=== PATIENT | male | born 1970 | race Caucasian/White ===

== ENCOUNTER 2025-02-27 10:25 | Inpatient (IN) | payer MEDICAID ==
[~2025-02-27] VITALS: Ht 177.8 cm; Wt 88.9 kg
[2025-02-27 11:05] LABS: PLATELET COUNT (AUTO) 247 K/uL (150-450); RED BLOOD CELL COUNT(AUTO) 4.71 MIL/uL (4.5-6.0); RED CELL DISTRIBUTION WIDTH 13.4 % (11.5-15.0); WHITE BLOOD COUNT (AUTO) 7.6 K/uL (4.3-11.0)
[2025-02-27] MEDS: IV NS 0.9% 1,000 ML BAG IV ONE (11:10)
[2025-02-27] MEDS: ONDANSETRON HCL/PF 4 MG/2 ML VIAL IVP ONE (11:11)
[2025-02-27] MEDS ORDERED: ONDANSETRON HCL/PF 4 MG/2 ML VIAL ONE (11:11)
[2025-02-27] MEDS ORDERED: MORPHINE SULFATE INJ 4 MG/ML DISP.SYRIN ONE (11:11)
[2025-02-27] MEDS: MORPHINE SULFATE INJ 2 MG/ML DISP.SYRIN IV ONE (11:12)
[2025-02-27 11:15] LABS: CALCIUM, SERUM 8.9 mg/dL (8.5-10.1); CREATININE 0.7 mg/dL (0.6-1.3); SODIUM SERUM 137.0 mmol/L (136-145); UREA NITROGEN, BLOOD 7.0 mg/dL (7-18)
[2025-02-27 11:23] LABS: ASPARTATE AMINOTRANSFERASE 32.0 U/L (15-37); TOTAL PROTEIN, SERUM 7.5 g/dL (6.4-8.2)
[2025-02-27 12:50] LABS: APPEARANCE,URINE CLEAR (CLEAR); BLOOD, URINE NEGATIVE Ery/uL (NEGATIVE); LEUKOCYTE ESTERASE ,URINE NEGATIVE (NEGATIVE); NITRITE, URINE NEGATIVE (NEGATIVE); UGLUCOSE NEGATIVE (NEGATIVE)
[2025-02-27 13:05] LABS: ADD URINE CULTURE NO; SQUAMOUS EPITHELIAL CELL,UR 0-2 /HPF (None Seen)
[2025-02-27] MEDS ORDERED: ONDANSETRON HCL/PF 4 MG/2 ML VIAL IVP PRN (13:30)
[2025-02-27] MEDS: ENOXAPARIN SODIUM 40 MG/0.4 ML DISP.SYRIN SQ SCH (15:19)
[2025-02-27] MEDS: MORPHINE SULFATE INJ 2 MG/ML DISP.SYRIN IV PRN (15:22)
[2025-02-27] MEDS: IV NS 0.9% 1,000 ML IV PRN (15:40)
[2025-02-27 15:53] VITALS: BP 149/97; TEMP 98; O2SAT 99
[2025-02-27 16:08] LABS: IRON, SERUM 31.0 ug/dl (50-175)
[2025-02-27 20:00] VITALS: BP 157/99; TEMP 98.2; O2SAT 99
[2025-02-27] MEDS: ZOLPIDEM TARTRATE 5 MG TABLET PO PRN (23:01)
[2025-02-28 07:33] LABS: PLATELET COUNT (AUTO) 242 K/uL (150-450); RED BLOOD CELL COUNT(AUTO) 4.65 MIL/uL (4.5-6.0); RED CELL DISTRIBUTION WIDTH 13.3 % (11.5-15.0); WHITE BLOOD COUNT (AUTO) 6.3 K/uL (4.3-11.0)
[2025-02-28 07:50] LABS: CALCIUM, SERUM 8.7 mg/dL (8.5-10.1); CREATININE 0.7 mg/dL (0.6-1.3); PHOSPHORUS 3.4 mg/dL (2.5-4.9); SODIUM SERUM 138.0 mmol/L (136-145); UREA NITROGEN, BLOOD 6.0 mg/dL (7-18)
[2025-02-28 08:00] VITALS: BP 141/97; TEMP 99; O2SAT 100
[2025-02-28 08:10] LABS: INR 1.07 (0.91-1.10)
[2025-02-28] MEDS ORDERED: IV NS 0.9% 250 ML IV ONE (11:16)
[2025-02-28] MEDS ORDERED: IOHEXOL-300 100 ML VIAL IV ONE (11:16)
[2025-02-28 16:00] VITALS: BP 140/86; TEMP 97.9; O2SAT 97
[2025-02-28] MEDS: NA PHOS,M-B/NA PHOS,DI-BA 1 EA ENEMA RC ONE (16:01)
[2025-02-28 22:03] VITALS: BP 153/85; TEMP 98.4; O2SAT 99
[2025-03-01 04:07] LABS: IMMUNOGLOBULIN A, SERUM 434 mg/dL (90-386); IMMUNOGLOBULIN M, SERUM 170 mg/dL (20-172)
[2025-03-01 06:58] LABS: CALCIUM, SERUM 8.6 mg/dL (8.5-10.1); CREATININE 0.6 mg/dL (0.6-1.3); PHOSPHORUS 3.3 mg/dL (2.5-4.9); SODIUM SERUM 138.0 mmol/L (136-145); UREA NITROGEN, BLOOD 12.0 mg/dL (7-18)
[2025-03-01 07:04] LABS: INR 1.08 (0.91-1.10)
[2025-03-01 07:07] LABS: FREE KAPPA LT CHAINS SERUM 26.5 mg/L (3.3-19.4); FREE LAMBDA LT CHAIN SERUM 24.5 mg/L (5.7-26.3); KAPPA/LAMBDA RATIO SERUM 1.08 (0.26-1.65)
[2025-03-01 07:07] LABS: PLATELET COUNT (AUTO) 216 K/uL (150-450); RED BLOOD CELL COUNT(AUTO) 4.52 MIL/uL (4.5-6.0); RED CELL DISTRIBUTION WIDTH 13.4 % (11.5-15.0); WHITE BLOOD COUNT (AUTO) 6.2 K/uL (4.3-11.0)
[2025-03-01 07:30] VITALS: BP 152/90; TEMP 97.7; O2SAT 96
[2025-03-01] MEDS: NA PHOS,M-B/NA PHOS,DI-BA 1 EA ENEMA RC STA (13:12)
[2025-03-01] MEDS ORDERED: NA PHOS,M-B/NA PHOS,DI-BA 1 EA ENEMA RC ONE (15:00)
[2025-03-01 20:00] VITALS: BP 148/88; TEMP 97.9; O2SAT 100
[2025-03-01] MEDS: ACETAMINOPHEN 325 MG TABLET PO PRN (22:21)
[2025-03-02 01:07] LABS: CARCINOEMBRYONIC ANTIGEN (CEA) 10.6 ng/mL (0.0-4.7); FOLIC ACID 9.4 ng/mL (>3.0)
[2025-03-02 07:30] VITALS: BP 136/104; TEMP 98.8; O2SAT 96
[2025-03-02 07:48] LABS: PLATELET COUNT (AUTO) 239 K/uL (150-450); RED BLOOD CELL COUNT(AUTO) 5.01 MIL/uL (4.5-6.0); RED CELL DISTRIBUTION WIDTH 13.4 % (11.5-15.0); WHITE BLOOD COUNT (AUTO) 7.3 K/uL (4.3-11.0)
[2025-03-02 10:07] LABS: *SPE A/G RATIO 0.8 (0.7-1.7); *SPE ALBUMIN 2.8 g/dL (2.9-4.4); *SPE ALPHA-1-GLOBULIN 0.4 g/dL (0.0-0.4); *SPE ALPHA-2-GLOBULIN 0.9 g/dL (0.4-1.0); *SPE BETA GLOBULIN 1.0 g/dL (0.7-1.3); *SPE GLOBULIN, TOTAL 3.3 g/dL (2.2-3.9); *SPE M-SPIKE Not Observed g/dL (Not Observed); *SPE PROTEIN TOTAL 6.1 g/dL (6.0-8.5); *SPEGAMMA GLOBULIN 1.0 g/dL (0.4-1.8)
[2025-03-02 20:00] VITALS: BP 134/92; TEMP 97.9; O2SAT 100
[2025-03-05] MEDS ORDERED: CLIN-27 PO (16:59)
== END 2025-03-02 20:30 | disposition short-term general hospital (02) | DRG 240 ==
LOC: ER 10:25 → MED 13:52 → UNDODISIN 03-01 14:55
PROVIDERS: ADMIT Nurse Practitioner Acute Care; ATTEND Nurse Practitioner Acute Care
PROC: 0DBN8ZX Excision of Sigmoid Colon, Via Natural or Artificial Opening Endoscopic, Diagnostic (ICD-10-PCS; principal; 2025-03-01 14:00)
DX: C18.7 Malignant neoplasm of sigmoid colon (principal); K56.690 Other partial intestinal obstruction; C78.01 Secondary malignant neoplasm of right lung; E27.8 Other specified disorders of adrenal gland; C78.02 Secondary malignant neoplasm of left lung; E44.0 Moderate protein-calorie malnutrition; E88.09 Other disorders of plasma-protein metabolism, not elsewhere classified; D50.9 Iron deficiency anemia, unspecified; R59.1 Generalized enlarged lymph nodes; Z86.19 Personal history of other infectious and parasitic diseases; N28.89 Other specified disorders of kidney and ureter; Z68.28 Body mass index [BMI] 28.0-28.9, adult; C78.7 Secondary malignant neoplasm of liver and intrahepatic bile duct; K59.09 Other constipation; L03.116 Cellulitis of left lower limb
CPT/HCPCS: 36415; 45330; 71260-TC; 80048-TC; 80076-TC; 81001; 82378; 82607-TC; 82728-TC; 82784; 82962-TC; 83540-TC; 83690-TC; 83735-TC; 84100-TC; 84155; 84165; 84443-TC; 85025-TC; 85610-TC; 85652-TC; 85730-TC; 86334; G0378; J1650; J2270; J2405; J2704; J3490; J7030; J7050; Q9967

== ENCOUNTER 2025-03-04 15:04 | Inpatient (IN) | payer MEDICAID ==
[~2025-03-04] VITALS: Ht 177.8 cm; Wt 88.0 kg
[2025-03-04 20:25] VITALS: BP 112/91; TEMP 98.4; O2SAT 99
[2025-03-04] MEDS ORDERED: MAGNESIUM HYDROXIDE 30 ML UDC PO PRN (22:00)
[2025-03-04] MEDS ORDERED: ONDANSETRON HCL/PF 4 MG/2 ML VIAL IVP PRN (22:00)
[2025-03-04] MEDS ORDERED: MAG HYDROX/AL HYDROX/SIMETH 30 ML UDC PO PRN (22:00)
[2025-03-04] MEDS ORDERED: ZOLPIDEM TARTRATE 5 MG TABLET PO PRN (22:00)
[2025-03-04] MEDS ORDERED: Z GUARD REMEDY 4 OZ OINT TP PRN (22:00)
[2025-03-04] MEDS: HYDROMORPHONE INJ 2 MG/ML DISP.SYRIN IV PRN (22:06)
[2025-03-05] VITALS: BP 117/79; TEMP 98.8; O2SAT 96
[2025-03-05 04:00] VITALS: BP 137/88; TEMP 100; O2SAT 97
[2025-03-05] MEDS: ACETAMINOPHEN 325 MG TABLET PO PRN (04:09)
[2025-03-05 06:43] LABS: PLATELET COUNT (AUTO) 185 K/uL (150-450); RED BLOOD CELL COUNT(AUTO) 4.40 MIL/uL (4.5-6.0); RED CELL DISTRIBUTION WIDTH 13.8 % (11.5-15.0); WHITE BLOOD COUNT (AUTO) 7.6 K/uL (4.3-11.0)
[2025-03-05 07:15] LABS: CALCIUM, SERUM 8.2 mg/dL (8.5-10.1); CREATININE 0.7 mg/dL (0.6-1.3); PHOSPHORUS 2.4 mg/dL (2.5-4.9); SODIUM SERUM 137.0 mmol/L (136-145); UREA NITROGEN, BLOOD 6.0 mg/dL (7-18)
[2025-03-05 08:00] VITALS: BP 120/83; TEMP 98.4; O2SAT 100
[2025-03-05 09:30] VITALS: BP 120/83; TEMP 98.4; O2SAT 100
[2025-03-05] MEDS: CLINDAMYCIN HCL 150 MG CAPSULE PO SCH (12:35)
[2025-03-05 15:55] VITALS: BP 125/80; TEMP 98; O2SAT 98
[2025-03-05 16:00] VITALS: BP 125/80; TEMP 98; O2SAT 98
[2025-03-05] MEDS: NEUTRA PHOS 1 POWD.PACKET PO ONE (16:35)
[2025-03-05] MEDS ORDERED: CLIN-27 PO (16:59)
[2025-03-05] MEDS: HYDROMORPHONE INJ 2 MG/ML DISP.SYRIN IV PRN (17:11)
[2025-03-05] MEDS ORDERED: GADOTERATE MEGLUMINE 10 MMOL/20 ML VIAL IV ONE (18:11)
== END 2025-03-05 19:10 | disposition home or self-care (01) | DRG 694 ==
LOC: MEDSG1 20:19
PROVIDERS: ADMIT Nurse Practitioner Acute Care; ATTEND Internal Medicine
DX: C7A.1 Malignant poorly differentiated neuroendocrine tumors (principal); K56.690 Other partial intestinal obstruction; C78.01 Secondary malignant neoplasm of right lung; E44.0 Moderate protein-calorie malnutrition; C78.6 Secondary malignant neoplasm of retroperitoneum and peritoneum; E88.09 Other disorders of plasma-protein metabolism, not elsewhere classified; L03.116 Cellulitis of left lower limb; C18.7 Malignant neoplasm of sigmoid colon; C78.7 Secondary malignant neoplasm of liver and intrahepatic bile duct; Z68.27 Body mass index [BMI] 27.0-27.9, adult; Z86.19 Personal history of other infectious and parasitic diseases; R59.1 Generalized enlarged lymph nodes; D64.9 Anemia, unspecified; Z96.89 Presence of other specified functional implants
CPT/HCPCS: 36415; 70553-TC; 80048-TC; 83735-TC; 84100-TC; 85025-TC; 87081-TC; 97112-TC; 97116-TC; 97530-TC; A9575; G0378; J1171

== ENCOUNTER 2025-04-23 22:08 | Inpatient (IN) | payer MEDICAID ==
[~2025-04-23] VITALS: Ht 170.2 cm; Wt 78.9 kg
[~2025-04-23 22:08] MED LIST: CLIN-27 PO
[2025-04-23] MEDS ORDERED: ONDANSETRON HCL/PF 4 MG/2 ML VIAL ONE (23:11)
[2025-04-23] MEDS ORDERED: HYDROMORPHONE 1 MG/1 ML DISP.SYRIN ONE (23:12)
[2025-04-23] MEDS: IV NS 0.9% 1,000 ML BAG IV ONE (23:15)
[2025-04-23] MEDS: ONDANSETRON HCL/PF 4 MG/2 ML VIAL IVP ONE (23:15)
[2025-04-23] MEDS: HYDROMORPHONE INJ 2 MG/ML DISP.SYRIN IV ONE (23:17)
[2025-04-23 23:23] LABS: PLATELET COUNT (AUTO) 480 K/uL (150-450); RED BLOOD CELL COUNT(AUTO) 3.93 MIL/uL (4.5-6.0); RED CELL DISTRIBUTION WIDTH 16.3 % (11.5-15.0); WHITE BLOOD COUNT (AUTO) 5.6 K/uL (4.3-11.0)
[2025-04-23 23:34] LABS: CALCIUM, SERUM 8.7 mg/dL (8.5-10.1); CREATININE 0.8 mg/dL (0.6-1.3); SODIUM SERUM 139.0 mmol/L (136-145); UREA NITROGEN, BLOOD 9.0 mg/dL (7-18)
[2025-04-23 23:36] LABS: INR 1.07 (0.91-1.10)
[2025-04-23 23:40] LABS: ASPARTATE AMINOTRANSFERASE 38.0 U/L (15-37); TOTAL PROTEIN, SERUM 7.0 g/dL (6.4-8.2)
[2025-04-24 00:08] LABS: APPEARANCE,URINE CLEAR (CLEAR); BLOOD, URINE NEGATIVE Ery/uL (NEGATIVE); LEUKOCYTE ESTERASE ,URINE NEGATIVE (NEGATIVE); NITRITE, URINE NEGATIVE (NEGATIVE); UGLUCOSE NEGATIVE (NEGATIVE)
[2025-04-24 00:20] LABS: ADD URINE CULTURE NO; SQUAMOUS EPITHELIAL CELL,UR Few /HPF (None Seen)
[2025-04-24 00:50] VITALS: BP 139/90; TEMP 97.5; O2SAT 97
[2025-04-24] MEDS ORDERED: MAG HYDROX/AL HYDROX/SIMETH 30 ML UDC PO PRN (01:00)
[2025-04-24] MEDS ORDERED: MAGNESIUM HYDROXIDE 30 ML UDC PO PRN (01:00)
[2025-04-24] MEDS ORDERED: Z GUARD REMEDY 4 OZ OINT TP PRN (01:00)
[2025-04-24] MEDS ORDERED: POLYETHYLENE GLYCOL 3350 17 GM POWD.PACK PO PRN (01:00)
[2025-04-24] MEDS ORDERED: ONDANSETRON HCL/PF 4 MG/2 ML VIAL IVP PRN (01:00)
[2025-04-24] MEDS: IV NS 0.9% 1,000 ML IV PRN (01:20)
[2025-04-24] MEDS: HYDROMORPHONE 1 MG/1 ML DISP.SYRIN IV PRN (03:24)
[2025-04-24 05:31] VITALS: BP 139/90; TEMP 97.5
[2025-04-24] MEDS: PANTOPRAZOLE 40 MG TABLET.DR PO SCH (06:32)
[2025-04-24] MEDS: DOCUSATE SODIUM 100 MG CAPSULE PO SCH (09:05)
[2025-04-24] MEDS ORDERED: MORP30TA7 PO (11:43)
[2025-04-24] MEDS ORDERED: HYDR4TAB4 PO (11:43)
[2025-04-24 20:00] VITALS: BP 133/87; TEMP 98.4; O2SAT 98
[2025-04-24] MEDS: SENNOSIDES 8.6 MG TABLET PO SCH (21:30)
[2025-04-25] MEDS: ACETAMINOPHEN 325 MG TABLET PO PRN (00:19)
[2025-04-25 06:48] LABS: PLATELET COUNT (AUTO) 404 K/uL (150-450); RED BLOOD CELL COUNT(AUTO) 3.53 MIL/uL (4.5-6.0); RED CELL DISTRIBUTION WIDTH 16.1 % (11.5-15.0); WHITE BLOOD COUNT (AUTO) 6.8 K/uL (4.3-11.0)
[2025-04-25 07:08] LABS: CALCIUM, SERUM 8.2 mg/dL (8.5-10.1); CREATININE 0.7 mg/dL (0.6-1.3); PHOSPHORUS 2.8 mg/dL (2.5-4.9); SODIUM SERUM 138.0 mmol/L (136-145); UREA NITROGEN, BLOOD 12.0 mg/dL (7-18)
[2025-04-25] MEDS ORDERED: MORP30TA7 PO (09:23)
[2025-04-25] MEDS ORDERED: HYDR2TAB4 PO (09:23)
== END 2025-04-25 15:05 | disposition home or self-care (01) | DRG 861 ==
LOC: ER 22:12 → MED 04-24 00:25
PROVIDERS: ADMIT Nurse Practitioner Acute Care; ATTEND Nurse Practitioner Acute Care
DX: G89.3 Neoplasm related pain (acute) (chronic) (principal); C79.70 Secondary malignant neoplasm of unspecified adrenal gland; C79.51 Secondary malignant neoplasm of bone; E44.1 Mild protein-calorie malnutrition; E88.09 Other disorders of plasma-protein metabolism, not elsewhere classified; C18.9 Malignant neoplasm of colon, unspecified; K59.00 Constipation, unspecified; D50.9 Iron deficiency anemia, unspecified; B19.20 Unspecified viral hepatitis C without hepatic coma; Z85.038 Personal history of other malignant neoplasm of large intestine; C78.00 Secondary malignant neoplasm of unspecified lung; Z79.60 Long term (current) use of unspecified immunomodulators and immunosuppressants; Z79.899 Other long term (current) drug therapy
CPT/HCPCS: 36415; 71045-TC; 80048-TC; 80076-TC; 81001; 83690-TC; 83735-TC; 84100-TC; 85025-TC; 85730-TC; A4223; G0378; J1171; J2405; J3490; J7030

== ENCOUNTER 2025-05-20 04:28 | Inpatient (IN) | payer MEDICAID ==
[~2025-05-20] VITALS: Ht 172.7 cm; Wt 75.7 kg
[~2025-05-20 04:28] MED LIST changes: -CLIN-27 PO; +HYDR2TAB4 PO; +MORP30TA7 PO
[2025-05-20] MEDS ORDERED: HYDROMORPHONE 1 MG/1 ML DISP.SYRIN ONE (05:11)
[2025-05-20 05:29] LABS: PLATELET COUNT (AUTO) 347 K/uL (150-450); RED BLOOD CELL COUNT(AUTO) 3.51 MIL/uL (4.5-6.0); RED CELL DISTRIBUTION WIDTH 19.3 % (11.5-15.0); WHITE BLOOD COUNT (AUTO) 10.0 K/uL (4.3-11.0)
[2025-05-20] MEDS: IV NS 0.9% 1,000 ML BAG IV ONE (05:33)
[2025-05-20] MEDS: HYDROMORPHONE 1 MG/1 ML DISP.SYRIN IV ONE (05:33)
[2025-05-20 05:36] LABS: CALCIUM, SERUM 8.4 mg/dL (8.5-10.1); CREATININE 1.0 mg/dL (0.6-1.3); SODIUM SERUM 131.0 mmol/L (136-145); UREA NITROGEN, BLOOD 10.0 mg/dL (7-18)
[2025-05-20 05:42] LABS: ASPARTATE AMINOTRANSFERASE 59.0 U/L (15-37); TOTAL PROTEIN, SERUM 6.6 g/dL (6.4-8.2)
[2025-05-20] MEDS ORDERED: HYDROMORPHONE 1 MG/1 ML DISP.SYRIN IV PRN (06:00)
[2025-05-20] MEDS ORDERED: Z GUARD REMEDY 4 OZ OINT TP PRN (06:00)
[2025-05-20] MEDS ORDERED: ONDANSETRON HCL/PF 4 MG/2 ML VIAL IVP PRN (06:00)
[2025-05-20] MEDS ORDERED: MAG HYDROX/AL HYDROX/SIMETH 30 ML UDC PO PRN (06:00)
[2025-05-20] MEDS ORDERED: ACETAMINOPHEN 325 MG TABLET PO PRN (06:00)
[2025-05-20] MEDS ORDERED: HYDR2TAB4 PO (08:09)
[2025-05-20] MEDS ORDERED: MORP30TA PO (08:09)
[2025-05-20] MEDS: PANTOPRAZOLE 40 MG TABLET.DR PO SCH (08:57)
[2025-05-20] MEDS: DOCUSATE SODIUM 100 MG CAPSULE PO SCH (08:57)
[2025-05-20 09:00] VITALS: BP 142/87; TEMP 98.6; O2SAT 97
[2025-05-20] MEDS: HYDROMORPHONE 1 MG/1 ML DISP.SYRIN IV PRN (09:29)
[2025-05-20] MEDS: dexaMETHasone SOD PHOSPHATE 4 MG/ML VIAL IV SCH (13:53)
[2025-05-20] MEDS ORDERED: dexaMETHasone SOD PHOSPHATE 4 MG/ML VIAL IV SCH (14:00)
[2025-05-20] MEDS: IV NS 0.9% 1,000 ML IV SCH (15:07)
[2025-05-20 16:00] VITALS: BP 181/96; TEMP 98.6; O2SAT 100
[2025-05-20 18:03] LABS: IRON, SERUM 20.0 ug/dl (50-175)
[2025-05-20] MEDS: HYDROMORPHONE INJ 2 MG/ML DISP.SYRIN IV PRN (19:59)
[2025-05-20 20:00] VITALS: BP 130/110; TEMP 96.5; O2SAT 99
[2025-05-20] MEDS: SENNOSIDES 8.6 MG TABLET PO SCH (21:18)
[2025-05-21] VITALS (7 sets, daily range): BP systolic 127–143; BP diastolic 84–113; TEMP 97–97.6; O2SAT 98–99
[2025-05-21 06:50] LABS: CALCIUM, SERUM 8.6 mg/dL (8.5-10.1); CREATININE 0.7 mg/dL (0.6-1.3); PHOSPHORUS 3.4 mg/dL (2.5-4.9); PLATELET COUNT (AUTO) 496 K/uL (150-450); RED BLOOD CELL COUNT(AUTO) 4.60 MIL/uL (4.5-6.0); RED CELL DISTRIBUTION WIDTH 19.7 % (11.5-15.0); SODIUM SERUM 134.0 mmol/L (136-145); UREA NITROGEN, BLOOD 13.0 mg/dL (7-18); WHITE BLOOD COUNT (AUTO) 11.1 K/uL (4.3-11.0)
[2025-05-21] MEDS ORDERED: CT SWABBABLE VALVE TRANS SET 1 EA INFUS.SET MC ONE (09:31)
[2025-05-21] MEDS ORDERED: IV NS 0.9% 250 ML IV ONE (09:31)
[2025-05-21] MEDS ORDERED: IOHEXOL-300 100 ML VIAL IV ONE (09:31)
[2025-05-21 21:01] LABS: APPEARANCE,URINE CLOUDY (CLEAR); BLOOD, URINE NEGATIVE Ery/uL (NEGATIVE); LEUKOCYTE ESTERASE ,URINE NEGATIVE (NEGATIVE); NITRITE, URINE NEGATIVE (NEGATIVE); UGLUCOSE NEGATIVE (NEGATIVE)
[2025-05-21 21:05] LABS: CREATININE, URINE 176.1 MG/DL (30.0-125.0); URINE SODIUM, RANDOM 9.0 mmol/l (40-220); URINE TOTAL PROTEIN 84.8 mg/dL (0-11.9)
[2025-05-21 22:09] LABS: ADD URINE CULTURE YES; SQUAMOUS EPITHELIAL CELL,UR Rare /HPF (None Seen)
[2025-05-21 22:10] LABS: URINE AMORPHOUS URATE Many /HPF (None Seen)
[2025-05-21 22:24] LABS: EOSINOPHIL,URINE None Seen
[2025-05-22] VITALS (9 sets, daily range): BP systolic 109–152; BP diastolic 62–114; TEMP 97.2–97.6; O2SAT 96–98
[2025-05-22] MEDS: LORAZEPAM 1 MG TABLET PO PRN (02:43)
[2025-05-22 08:30] LABS: CALCIUM, SERUM 8.7 mg/dL (8.5-10.1); CREATININE 1.1 mg/dL (0.6-1.3); SODIUM SERUM 134.0 mmol/L (136-145); UREA NITROGEN, BLOOD 17.0 mg/dL (7-18)
[2025-05-22 08:31] LABS: PHOSPHORUS 2.5 mg/dL (2.5-4.9)
[2025-05-22] MEDS: LORAZEPAM INJ 2 MG/ML VIAL IV ONE (10:24)
[2025-05-22] MEDS: IV NS 0.9% 1,000 ML IV PRN (12:06)
[2025-05-23 01:00] VITALS: BP 130/94
[2025-05-23 03:15] VITALS: BP 135/91
[2025-05-23 04:00] VITALS: BP 134/99; TEMP 97.3; O2SAT 96
[2025-05-23 07:34] LABS: PLATELET COUNT (AUTO) 477 K/uL (150-450); RED BLOOD CELL COUNT(AUTO) 4.15 MIL/uL (4.5-6.0); RED CELL DISTRIBUTION WIDTH 19.5 % (11.5-15.0); WHITE BLOOD COUNT (AUTO) 14.4 K/uL (4.3-11.0)
[2025-05-23 08:20] VITALS: BP 132/107; TEMP 97.9; O2SAT 97
[2025-05-23 16:50] VITALS: BP 149/81; TEMP 97.5; O2SAT 98
[2025-05-23 20:00] VITALS: BP 129/105; TEMP 97.5; O2SAT 97
[2025-05-24 04:00] VITALS: BP 136/92; TEMP 96.5; O2SAT 100
[2025-05-24 08:00] VITALS: BP 138/92; TEMP 97.1; O2SAT 96
[2025-05-24] MEDS: MORPHINE SULFATE SR 15 MG TABLET.SA PO SCH (14:21)
[2025-05-24] MEDS: HYDROMORPHONE INJ 2 MG/ML DISP.SYRIN IV PRN (14:41)
[2025-05-24 16:00] VITALS: BP 125/75; TEMP 98; O2SAT 96
[2025-05-24] MEDS: HYDROMORPHONE HCL 2 MG TABLET PO PRN (16:48)
[2025-05-24 20:00] VITALS: BP 141/94; TEMP 97.7; O2SAT 98
[2025-05-25] VITALS: BP 137/90; TEMP 97.7; O2SAT 97
[2025-05-25 04:00] VITALS: BP 136/88; TEMP 97.5; O2SAT 96
[2025-05-25 07:21] LABS: PLATELET COUNT (AUTO) 432 K/uL (150-450); RED BLOOD CELL COUNT(AUTO) 4.11 MIL/uL (4.5-6.0); RED CELL DISTRIBUTION WIDTH 19.6 % (11.5-15.0); WHITE BLOOD COUNT (AUTO) 17.6 K/uL (4.3-11.0)
[2025-05-25 07:32] LABS: ASPARTATE AMINOTRANSFERASE 64.0 U/L (15-37); CALCIUM, SERUM 8.3 mg/dL (8.5-10.1); CREATININE 0.9 mg/dL (0.6-1.3); SODIUM SERUM 133.0 mmol/L (136-145); TOTAL PROTEIN, SERUM 6.3 g/dL (6.4-8.2); UREA NITROGEN, BLOOD 20.0 mg/dL (7-18)
[2025-05-25 08:00] VITALS: BP 129/95; TEMP 98.2; O2SAT 98
[2025-05-25 09:39] VITALS: BP 135/95; TEMP 97.5; O2SAT 98
[2025-05-25 16:00] VITALS: BP 136/96; TEMP 97.5; O2SAT 96
[2025-05-25 20:00] VITALS: BP 144/96; TEMP 97.7; O2SAT 96
[2025-05-26 04:00] VITALS: BP 148/95; TEMP 98; O2SAT 100
[2025-05-26 06:53] LABS: PLATELET COUNT (AUTO) 389 K/uL (150-450); RED BLOOD CELL COUNT(AUTO) 4.46 MIL/uL (4.5-6.0); RED CELL DISTRIBUTION WIDTH 20.3 % (11.5-15.0); WHITE BLOOD COUNT (AUTO) 18.5 K/uL (4.3-11.0)
[2025-05-26 07:09] LABS: CALCIUM, SERUM 8.5 mg/dL (8.5-10.1); CREATININE 0.8 mg/dL (0.6-1.3); SODIUM SERUM 135.0 mmol/L (136-145); UREA NITROGEN, BLOOD 17.0 mg/dL (7-18)
[2025-05-26 08:00] VITALS: BP 143/86; TEMP 97; O2SAT 96; O2SAT 97
[2025-05-26] MEDS ORDERED: HYDR4TAB4 PO (09:18)
[2025-05-26] MEDS ORDERED: DOCU100C36 PO (09:18)
[2025-05-26] MEDS ORDERED: CT SWABBABLE VALVE TRANS SET 1 EA INFUS.SET MC ONE (11:06)
[2025-05-26] MEDS ORDERED: IOHEXOL-300 100 ML VIAL IV ONE (11:06)
[2025-05-26] MEDS ORDERED: IOHEXOL 50 ML IV ONE (11:06)
[2025-05-26] MEDS ORDERED: IV NS 0.9% 250 ML IV ONE (11:06)
[2025-05-26 16:00] VITALS: BP 139/85; TEMP 97.6; O2SAT 99
[2025-05-26 20:00] VITALS: BP 132/99; TEMP 98.4; O2SAT 98
[2025-05-27 04:00] VITALS: BP 132/90; TEMP 99; O2SAT 97
[2025-05-27 08:00] VITALS: BP 124/84; TEMP 99; O2SAT 97
[2025-05-27] MEDS: HYDROMORPHONE HCL 2 MG TABLET PO PRN (15:22)
== END 2025-05-27 16:05 | DRG 347 ==
LOC: ER 04:32 → MEDSG1 08:09
PROVIDERS: ADMIT Internal Medicine; ATTEND Internal Medicine
DX: M54.9 Dorsalgia, unspecified (principal); C78.01 Secondary malignant neoplasm of right lung; E46 Unspecified protein-calorie malnutrition; C78.02 Secondary malignant neoplasm of left lung; C78.7 Secondary malignant neoplasm of liver and intrahepatic bile duct; C79.51 Secondary malignant neoplasm of bone; E88.09 Other disorders of plasma-protein metabolism, not elsewhere classified; C7A.1 Malignant poorly differentiated neuroendocrine tumors; C18.9 Malignant neoplasm of colon, unspecified; G89.3 Neoplasm related pain (acute) (chronic); D63.8 Anemia in other chronic diseases classified elsewhere; M51.17 Intervertebral disc disorders with radiculopathy, lumbosacral region; E87.1 Hypo-osmolality and hyponatremia; D50.9 Iron deficiency anemia, unspecified; G89.4 Chronic pain syndrome; K59.00 Constipation, unspecified; N17.9 Acute kidney failure, unspecified; Z79.60 Long term (current) use of unspecified immunomodulators and immunosuppressants; Z86.19 Personal history of other infectious and parasitic diseases; Z68.25 Body mass index [BMI] 25.0-25.9, adult; N13.30 Unspecified hydronephrosis; R53.1 Weakness; Z79.891 Long term (current) use of opiate analgesic; C79.71 Secondary malignant neoplasm of right adrenal gland; M79.661 Pain in right lower leg
CPT/HCPCS: 36415; 70460-TC; 71260-TC; 72126-TC; 72129-TC; 72132-TC; 76770-TC; 80048-TC; 80053-TC; 81001; 82378; 82570-TC; 82607-TC; 82728-TC; 83540-TC; 83735-TC; 83935-TC; 84100-TC; 84300-TC; 84443-TC; 84550-TC; 85025-TC; 87086-TC; 93970-TC; 97110-TC; 97116-TC; 97530-TC; A4223; G0378; J1100; J1171; J2060; J7030; J7050; Q9967

== ENCOUNTER 2025-05-30 21:18 | Emergency (ER) | payer MEDICAID ==
[~2025-05-30] VITALS: Ht 172.7 cm; Wt 81.6 kg
[~2025-05-30 21:18] MED LIST changes: +DOCU100C36 PO; -HYDR2TAB4 PO; +HYDR4TAB4 PO; +MORP30TA PO; -MORP30TA7 PO
[2025-05-30] MEDS: VANCOMYCIN 1 GM in IV D5W 250 ML IV ONE (22:00)
[2025-05-30] MEDS ORDERED: PIPERACI/TAZO 3.375GM/D5W 50ML PB IV ONE (22:21)
[2025-05-30] MEDS ORDERED: LIDOCAINE/PRILOCAINE (5GM) 5 GM TUBE TP ONE (22:24)
[2025-05-30 22:26] LABS: PLATELET COUNT (AUTO) 353 K/uL (150-450); RED BLOOD CELL COUNT(AUTO) 4.07 MIL/uL (4.5-6.0); RED CELL DISTRIBUTION WIDTH 21.0 % (11.5-15.0); WHITE BLOOD COUNT (AUTO) 18.1 K/uL (4.3-11.0)
[2025-05-30 22:34] LABS: CALCIUM, SERUM 8.4 mg/dL (8.5-10.1); CREATININE 0.8 mg/dL (0.6-1.3); SODIUM SERUM 127 mmol/L (136-145); UREA NITROGEN, BLOOD 18 mg/dL (7-18)
[2025-05-30 22:37] LABS: INR 1.12 (0.91-1.10)
[2025-05-30 22:40] LABS: ASPARTATE AMINOTRANSFERASE 64 U/L (15-37); TOTAL PROTEIN, SERUM 6.6 g/dL (6.4-8.2)
[2025-05-30 22:43] LABS: LACTIC ACID 2.3 mmol/L (0.4-2.0)
[2025-05-30] MEDS ORDERED: HYDROMORPHONE INJ 2 MG/ML DISP.SYRIN ONE (22:43)
[2025-05-30] MEDS ORDERED: ONDANSETRON HCL/PF 4 MG/2 ML VIAL ONE (22:43)
[2025-05-30] MEDS: ONDANSETRON HCL/PF - ER 4 MG/2 ML VIAL IV ONE (22:46)
[2025-05-30] MEDS: HYDROMORPHONE INJ 2 MG/ML DISP.SYRIN IV ONE (22:48)
[2025-05-30] MEDS: IV NS 0.9% 1,000 ML BAG IV ONE (22:55)
[2025-05-30] MEDS: PIPERACILLIN /TAZOBACTAM 3.375 G in IV D5W 50 ML IV ONE (22:55)
[2025-05-30] MEDS ORDERED: VANCOMYCIN 1 GM /D5W 250 ML PB IV ONE (23:19)
[2025-05-31] MEDS ORDERED: SULF1TAB48 PO (01:17)
[2025-05-31] MEDS ORDERED: CEPH500C2 PO (01:17)
[2025-05-31] MEDS ORDERED: HYDROMORPHONE INJ 2 MG/ML DISP.SYRIN ONE (01:21)
[2025-05-31] MEDS: HYDROMORPHONE INJ 2 MG/ML DISP.SYRIN IV ONE (01:26)
[2025-05-31 02:29] VITALS: BP 120/92; TEMP 98.1; O2SAT 97
== END 2025-05-31 02:30 | disposition home or self-care (01) ==
LOC: ER 21:19
DX: C78.00 Secondary malignant neoplasm of unspecified lung (principal); C77.9 Secondary and unspecified malignant neoplasm of lymph node, unspecified; G89.3 Neoplasm related pain (acute) (chronic); L02.412 Cutaneous abscess of left axilla; F19.10 Other psychoactive substance abuse, uncomplicated; N13.1 Hydronephrosis with ureteral stricture, not elsewhere classified; Z86.19 Personal history of other infectious and parasitic diseases; Z79.899 Other long term (current) drug therapy
CPT/HCPCS: 99285; 71250; 96365; 96366; 96375; 96361; 96368; 74176; 84145; 85025; 80048; 87040 ×2; 83605 ×2; 83690; 80076; 36415 ×2; 85730; 96376; J1171 ×2; J3373 ×2; J2405 ×2; J2543 ×2; J7060; J7030